=== PATIENT | female | born 1945 | race Caucasian/White ===

== ENCOUNTER 2020-07-03 14:13 | Observation (INO) | payer MEDICARE, OTHER, SELFPAY ==
[2020-07-03] VITALS (81 sets, daily range): BP systolic 121–184; BP diastolic 66–111; PULSE 54–162; RESP 10–56; TEMP 36.4–36.8; O2SAT 54–100; BMI 25.2
--- NOTE | 2020-07-03 14:25 | DI.RAD.S_ITS ---
PROCEDURE: XR CHEST 1V INDICATIONS: tachycardia TECHNIQUE: One view of the chest was acquired. COMPARISON: None. FINDINGS: Surgical changes and devices: None. Lungs and pleura: 20 mm diameter right lateral lung base nodule.. No pleural effusions or pneumothorax. Mediastinum: Mediastinal contours appear normal. Heart size is normal. Bones and chest wall: No suspicious bony lesions. Overlying soft tissues appear unremarkable. IMPRESSION: 1. No acute process. 2. Right lung base nodule; further assessment with chest CT with intravenous contrast is recommended. Dictated by: Juan F Adrian M.D. on 07/03/2020 at 14:48 Approved by: Juan F Adrian M.D. on 07/03/2020 at 14:49
--- NOTE | 2020-07-03 14:37 | PC.NURSE ---
patient seen in clinic on [facility] this morning. states she has had a few days of chest pressure that velt like vibrations. states she still has these feelings. denies SOB n/v.
[2020-07-03 14:41] LABS: Add Manual Diff / Slide Review NO; Basophils Absolute Auto 100 /uL (0-100); Basophils Percent Auto 0.9 % (0-2); Eosinophils Absolute Auto 100 /uL (0-450); Eosinophils Percent Auto 0.8 % (2-4); Hematocrit 44.8 % (36-46); Hemoglobin 14.9 g/dL (12.0-16.0); Lymphocytes Absolute Auto 1600 /uL (1100-4500); Lymphocytes Percent Auto 16.7 % (25-40); Mean Corpuscular HGB Conc 33.3 % (30-36); Mean Corpuscular Hemoglobin 32.5 PG (26-34); Mean Corpuscular Volume 97.7 fL (80-100); Monocytes Absolute Auto 800 /uL (0-900); Monocytes Percent Auto 7.8 % (3-14); Neutrophils Absolute Auto 7200 /uL (1500-7000); Neutrophils Percent Auto 73.8 % (50-75); Platelet Count 290 X10^3/uL (150-400); Red Blood Cell Count 4.59 X10^6/uL (4.0-5.2); Red Cell Distribution Width 13.4 % (11.6-14.8); White Blood Cell Count 9.8 X10^3/uL (4.5-11.0)
[2020-07-03 14:55] LABS: Alanine Aminotransferase 17 IU/L (<35); Albumin Globulin Ratio 1.5 (1.0-2.8); Alkaline Phosphatase 97 U/L (38-126); Aspartate Aminotransferase 27 IU/L (14-36); BUN Creatinine Ratio 19.6 (6-22); Bilirubin Total 0.7 mg/dL (0.2-1.3); Blood Urea Nitrogen 19 mg/dL (7-17); Calcium 10.1 mg/dL (8.4-10.2); Carbon Dioxide 25 mmol/L (22-32); Chloride 104 mmol/L (98-107); Creatine Kinase 68 U/L (30-135); Estimated Glomerular Filt Rate 56.3 mL/min (>60); Globulin 3.3 g/dL (1.7-4.1); Glucose 108 mg/dL (80-110); HEMOLYSIS 17 (0-50); Magnesium 2.2 mg/dL (1.6-2.3); Potassium 4.1 mmol/L (3.4-5.1); Sodium 138 mmol/L (137-145); Total Protein 8.3 g/dL (6.3-8.2)
--- NOTE | 2020-07-03 15:01 | ED.ARRPALP ---
HPI - Arrhythmia/Palpitations General Chief Complaint: Arrhythmia/Palpitations Stated Complaint: heart angina Time Seen by Provider: 07/03/20 15:01 Source: patient Mode of arrival: Ambulatory Limitations: no limitations History of Present Illness HPI narrative: 74-year-old woman from [place] with intermittent palpitations for the last 10 days fairly solidly rapid over the last 3 days. History of hypothyroidism lupus, Raynaud's disease and like, status post and I stent with no need for any additional medications. Over the last 10 days she has noticed episodes of her heart rate racing without associated dyspnea, diaphoresis or pain. Since Friday morning it has been fairly consistent and in the 160s. Again no pain, diaphoresis or dyspnea. No lower extremity edema and no other concerning signs or symptoms. She was assuming it would go away which is why it took her 3 days to present to the emergency room from [facility] Home Medications Medication Instructions Recorded Confirmed multivitamin [Multiple Vitamins] 1 tab PO DAILY #0 01/24/17 07/03/20 levothyroxine [Synthroid] 0.075 mg PO QAM #0 06/09/17 07/03/20 Allergies Allergy/AdvReac Type Severity Reaction Status Date / Time No Known Drug Allergies Allergy Verified 07/03/20 14:24 Review of Systems Review of Systems Narrative: She does note some intermittent right-sided jaw swelling around her TMJ joint, occasional hot flashes at night Pertinent positive and negative findings as per HPI Remainder of review of systems is otherwise unremarkable for Constitutional: Fevers, chills, weakness GI: Nausea, vomiting, diarrhea, change in bowel habits, black or bloody stools : Dysuria, hematuria, flank pain MS: Muscle weakness, numbness, joint swelling or warmth Skin: Rashes, nonhealing lesions Neuro: Syncope, dizziness, tingling Patient History Medical History Acquired hypothyroidism Atrial flutter with rapid ventricular response (Acute) Chronic obstructive pulmonary disease (01/24/17) Pulmonary nodule (Acute) Social History Smoking Status: Former smoker Smoking Status: Former smoker alcohol intake frequency: 0-2 drinks per day Substance Use Type: marijuana Exam Narrative Exam Narrative: General: Healthy appearing, in no acute distress. Able to give a complete and coherent history. Well-nourished well-developed HEENT: Moist mucous membranes, normal sclera with reactive pupils, Neck: No JVD, supple Respiratory: Lungs are clear to auscultation, no wheezing no rales no rhonchi. Full and symmetrical air movement Cardiac: Irregular rate slowed dramatically after initial diltiazem bolus, no murmurs no bruits Abdomen: Soft nontender good bowel tones, no flank pain Skin: Warm and dry, no rashes Neurologic: Grossly neurologically intact with no obvious asymmetries or abnormalities Extremities: No trauma, well perfused Psych: Cooperative, appropriate insight and affect Initial Vital Signs Initial Vital Signs: Vital Signs Temperature 97.9 F 07/03/20 14:22 Pulse Rate 162 H 07/03/20 14:22 Respiratory Rate 24 07/03/20 14:22 Blood Pressure 184/89 H 07/03/20 14:22 Pulse Oximetry 100 07/03/20 14:22 Course Orders Ordered: ED Orders 07/03/20 14:25 XR chest 1V Stat EKG-12 Lead Stat 07/03/20 14:30 Complete Blood Count AUTO DIFF Stat Comprehensive Metabolic Panel Stat Magnesium Stat Thyroid Stimulating Hormone Stat Troponin & CK Cardiac Panel Stat DILTIAZEM (Diltiazem 125 Mg/125 Ml-D5w) 125 mg in 125 mls @ 5 mls/hr IV TITRATE YADIRA; Protocol Last Admin: 07/03/20 15:39 Dose: 5 mg/hr, 5 mls/hr Documented by: DAVID Discontinued Medications Diltiazem HCl (Cardizem) 20 mg IV NOW ONE Stop: 07/03/20 15:04 Last Admin: 07/03/20 15:24 Dose: 20 mg Documented by: DAVID Vital Signs Vital signs: Vital Signs - 8 hr 07/03/20 14:22 07/03/20 14:28 07/03/20 14:29 Temperature 97.9 F Pulse Rate 162 H 69 54 L Respiratory Rate 24 Blood Pressure 184/89 H Pulse Oximetry 100 60 L 54 L 07/03/20 14:30 07/03/20 14:31 07/03/20 14:35 Temperature Pulse Rate 161 H Respiratory Rate Blood Pressure 156/110 H Pulse Oximetry 56 L 100 07/03/20 14:40 07/03/20 14:45 07/03/20 14:50 Temperature Pulse Rate 160 H 160 H 160 H Respiratory Rate Blood Pressure 147/105 H 149/103 H Pulse Oximetry 99 100 100 07/03/20 14:55 07/03/20 15:00 07/03/20 15:05 Temperature Pulse Rate 160 H 160 H 160 H Respiratory Rate Blood Pressure 136/101 H Pulse Oximetry 100 100 99 07/03/20 15:10 07/03/20 15:15 07/03/20 15:22 Temperature Pulse Rate 162 H 162 H 158 H Respiratory Rate Blood Pressure 142/99 H Pulse Oximetry 98 100 94 07/03/20 15:24 07/03/20 15:25 07/03/20 15:30 Temperature Pulse Rate 162 H 161 H 81 Respiratory Rate Blood Pressure 129/111 H 138/103 H 122/66 Pulse Oximetry 90 L 99 100 07/03/20 15:35 07/03/20 15:40 07/03/20 15:45 Temperature Pulse Rate 82 83 148 H Respiratory Rate Blood Pressure 133/84 138/88 139/82 Pulse Oximetry 99 100 100 07/03/20 15:50 07/03/20 15:55 07/03/20 16:00 Temperature Pulse Rate 82 82 83 Respiratory Rate Blood Pressure 136/83 140/86 126/86 Pulse Oximetry 100 100 99 07/03/20 16:05 Temperature Pulse Rate 83 Respiratory Rate Blood Pressure 124/83 Pulse Oximetry 99 MDM - Arrhythmia/Palpitations Medical Records Attestation: I reviewed the patient's medical records. Lab Data Attestation: I reviewed the patient's lab results. Result diagrams: 07/03/20 14:30 07/03/20 14:30 Labs: Lab Results 07/03/20 07/03/20 07/03/20 Range/Units 14:30 14:30 14:30 WBC 9.8 (4.5-11.0) X10^3/uL RBC 4.59 (4.0-5.2) X10^6/uL Hgb 14.9 (12.0-16.0) g/dL Hct 44.8 (36-46) % MCV 97.7 (80-100) fL MCH 32.5 (26-34) PG MCHC 33.3 (30-36) % RDW 13.4 (11.6-14.8) % Plt Count 290 (150-400) X10^3/uL Neut % (Auto) 73.8 (50-75) % Lymph % (Auto) 16.7 L (25-40) % [place] % (Auto) 7.8 (3-14) % Eos % (Auto) 0.8 L (2-4) % Baso % (Auto) 0.9 (0-2) % Neut # (Auto) 7200 H (3459-2909) /uL Lymph # (Auto) 1600 (1052-4973) /uL [place] # (Auto) 800 (0-900) /uL Eos # (Auto) 100 (0-450) /uL Baso # (Auto) 100 (0-100) /uL Sodium 138 (137-145) mmol/L Potassium 4.1 (3.4-5.1) mmol/L Chloride 104 (98-107) mmol/L Carbon Dioxide 25 (22-32) mmol/L BUN 19 H (7-17) mg/dL Creatinine 0.97 (0.52-1.04) mg/dL Estimated GFR 56.3 L (>60) mL/min BUN/Creatinine Ratio 19.6 (6-22) Glucose 108 (80-110) mg/dL Calcium 10.1 (8.4-10.2) mg/dL Magnesium 2.2 (1.6-2.3) mg/dL Total Bilirubin 0.7 (0.2-1.3) mg/dL AST 27 (14-36) IU/L ALT 17 (<35) IU/L Alkaline Phosphatase 97 (38-126) U/L Total Creatine Kinase 68 (30-135) U/L CK-MB (CK-2) TNP CK-MB (CK-2) Rel Index TNP Troponin I 0.014 (0.01-0.034) ng/mL Total Protein 8.3 H (6.3-8.2) g/dL Albumin 5.0 (3.5-5.0) g/dL Globulin 3.3 (1.7-4.1) g/dL Albumin/Globulin Ratio 1.5 (1.0-2.8) TSH 10.5 H (0.47-4.68) uIU/mL Urine Dip Bedside Urine Glucose Negative Bedside Urine Bilirubin - Negative Bedside Urine Ketone +/- 5 Urine Specific [place] 1.010 Bedside Urine Occult Blood - Negative Bedside Urine pH 6.0 Bedside Urine Protein - Negative Bedside Urine Urobilinogen - Negative Bedside Urine Nitrite - Negative Bedside Urine Leukocytes - Negative Esterase Imaging Data Chest x-ray: Radiologist's Impresson: IMPRESSION: 1. No acute process. 2. Right lung base nodule; further assessment with chest CT with intravenous contrast is recommended. Dictated by: Juan F Adrian M.D. on 07/03/2020 at 14:48 ECG Data Attestation: I personally reviewed and interpreted this ECG as follows: Interpretation: Atrial flutter with rapid ventricular response at 161 Left anterior and right bundle branch block ST T wave changes noted #2, after 20mg IV dilt bolus Atrial flutter with a rate of 80 Rightward axis Left bundle-branch block No obvious ischemia MDM Narrative Medical decision making narrative: 74-year-old woman with 10 days of intermittent palpitations in the last 72 hours has been consistently in a rapid rhythm. Presenting to the emergency room with atrial flutter one-to-one at a rate of 161. No significant complaints other than the flutter feeling in her chest. Initial labs are unremarkable including a normal troponin. Chest x-ray reveals a 20 mm right lateral lung base nodule that is a new diagnosis for her. She is given a 20 mg bolus of diltiazem which showed slows her ventricular rate to 80 and clearly reveals the flutter pattern underlying. As this is a new diagnosis and she lives on [place] she will need observation, a discussion of anticoagulation, discussion of outpatient follow-up and will likely benefit from echocardiogram. Will contact hospitalist service. She is currently stable at this time diltiazem drip is continuing but may well be able to be converted to oral medications in light of the dramatically slowed ventricular rate with a syncopal list. Dr Killian accepts admit Discharge Plan Departure Clinical Impression: Atrial flutter with rapid ventricular response, Pulmonary nodule Discharge Date/Time: 07/03/20 16:06 Admit Date/Time: 07/03/20 16:05 Admit Provider: Cheo Killian
[2020-07-03 15:05] LABS: Troponin I 0.014 ng/mL (0.01-0.034)
[2020-07-03 15:24] LABS: Thyroid Stimulating Hormone 10.5 uIU/mL (0.47-4.68)
[2020-07-03] MEDS: dilTIAZem 5 MG/ML SDV 20 MG IV (15:24)
[2020-07-03] MEDS: DILTIAZEM 125 MG/125 ML PIGGYBACK IV (15:39)
--- NOTE | 2020-07-03 15:40 | PC.NURSE ---
patient converted to what appeared normal sinus in bedside monitor. EKG now shows a flutter with rate controlled to 83. bp 138/88 Patient swabbed for covid in preparation for admission to ICU
[2020-07-03 16:53] LABS: COVID19 -Nasal RAPID Negative (Negative)
--- NOTE | 2020-07-03 18:17 | P.HP_ITS ---
History of Present Illness History of Present Illness Date Patient Seen: 07/03/20 Time Patient Seen: 18:18 Chief complaint: heart angina Narrative: Shayy Valdivia is a 74-year-old female with past medical history of hypothyroidism, glaucoma status post stent, and reported lupus and Raynaud's disease who presented with intermittent palpitations over previous 5 days. She feels episodes where her heart is racing, but denies any associated shortness of breath, dizziness, chest pain although she does feel intermittent epigastric pressure that is resolved when her palpitations resolved. Over the past 3 days her heart rate has been fairly consistently in the 150s to 160s, so she went to the emergency room on [address] today for further evaluation. She denies any lower extremity edema, shortness of breath, dyspnea on exertion. 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 In the emergency room her initial heart rate was in the 160s, EKG showed atrial flutter. She showed improvement with IV diltiazem was started on a diltiazem infusion in the emergency room. During my interview she actually converted to normal sinus rhythm with rate of 76. Otherwise vital signs were unremarkable. Initial laboratory findings were further unremarkable including a normal potassium and normal magnesium. Her GFR is slightly low at 56.3 with a creatinine of 0.97. Troponin was negative at 0.014. TSH was 10.5, free T4 will be added on. COVID-19 testing was negative. Patient was admitted under observation status for new diagnosis of atrial flutter with rapid ventricular response. Patient History Medical History Acquired hypothyroidism Atrial flutter with rapid ventricular response (Acute) Chronic obstructive pulmonary disease (01/24/17) Pulmonary nodule (Acute) Family & Social History Social History: household members spouse Prior Living Arrangements House Safety & Behavioral: Feels Safe in Current Yes Environment Been Physically Hurt or No Threatened By a Person Suicidal Ideation Description None Suicide Plan Description No Plan Tobacco & Substance use: Smoking Status Former smoker alcohol intake former alcohol intake frequency 0-2 drinks per day Substance Use Type marijuana Meds Home Medications and Allergies Home Medications Medication Instructions Recorded Confirmed Type multivitamin [Multiple Vitamins] 1 tab PO DAILY #0 01/24/17 07/03/20 History levothyroxine [Synthroid] 0.075 mg PO QAM #0 06/09/17 07/03/20 History Allergies Allergy/AdvReac Type Severity Reaction Status Date / Time No Known Drug Allergies Allergy Verified 07/03/20 14:24 Review of Systems Review of Systems Narrative: All other systems reviewed with the patient and are negative unless otherwise stated. Exam Vital Signs (past 8 hours): - 07/03/20 14:22 07/03/20 14:28 07/03/20 14:29 Temperature 97.9 F Pulse Rate 162 H 69 54 L Respiratory Rate 24 Blood Pressure 184/89 H Pulse Oximetry 100 60 L 54 L 07/03/20 14:30 07/03/20 14:31 07/03/20 14:35 Temperature Pulse Rate 161 H Respiratory Rate Blood Pressure 156/110 H Pulse Oximetry 56 L 100 07/03/20 14:40 07/03/20 14:45 07/03/20 14:50 Temperature Pulse Rate 160 H 160 H 160 H Respiratory Rate Blood Pressure 147/105 H 149/103 H Pulse Oximetry 99 100 100 07/03/20 14:55 07/03/20 15:00 07/03/20 15:05 Temperature Pulse Rate 160 H 160 H 160 H Respiratory Rate Blood Pressure 136/101 H Pulse Oximetry 100 100 99 07/03/20 15:10 07/03/20 15:15 07/03/20 15:22 Temperature Pulse Rate 162 H 162 H 158 H Respiratory Rate Blood Pressure 142/99 H Pulse Oximetry 98 100 94 07/03/20 15:24 07/03/20 15:25 07/03/20 15:30 Temperature Pulse Rate 162 H 161 H 81 Respiratory Rate Blood Pressure 129/111 H 138/103 H 122/66 Pulse Oximetry 90 L 99 100 07/03/20 15:35 07/03/20 15:40 07/03/20 15:45 Temperature Pulse Rate 82 83 148 H Respiratory Rate Blood Pressure 133/84 138/88 139/82 Pulse Oximetry 99 100 100 07/03/20 15:50 07/03/20 15:55 07/03/20 16:00 Temperature Pulse Rate 82 82 83 Respiratory Rate Blood Pressure 136/83 140/86 126/86 Pulse Oximetry 100 100 99 07/03/20 16:05 07/03/20 16:10 07/03/20 16:15 Temperature Pulse Rate 83 83 83 Respiratory Rate Blood Pressure 124/83 126/88 134/93 H Pulse Oximetry 99 99 100 07/03/20 16:20 07/03/20 16:25 07/03/20 16:26 Temperature Pulse Rate 83 84 82 Respiratory Rate Blood Pressure 127/83 135/86 Pulse Oximetry 99 99 99 07/03/20 16:30 07/03/20 16:35 07/03/20 16:40 Temperature Pulse Rate 83 83 83 Respiratory Rate Blood Pressure 134/84 136/86 142/87 H Pulse Oximetry 99 100 99 07/03/20 16:52 07/03/20 16:54 07/03/20 16:55 Temperature Pulse Rate 78 83 83 Respiratory Rate Blood Pressure 136/96 H Pulse Oximetry 83 L 99 99 07/03/20 17:00 07/03/20 17:05 07/03/20 17:10 Temperature Pulse Rate 132 H 86 84 Respiratory Rate 29 H 17 25 H Blood Pressure Pulse Oximetry 96 100 100 07/03/20 17:15 07/03/20 17:20 07/03/20 17:25 Temperature 98.2 F Pulse Rate 83 84 83 Respiratory Rate 38 H 31 H 10 L Blood Pressure 136/96 H Pulse Oximetry 99 99 100 07/03/20 17:30 07/03/20 17:35 07/03/20 17:40 Temperature Pulse Rate 73 97 H 83 Respiratory Rate 27 H 56 H 25 H Blood Pressure Pulse Oximetry 100 97 98 07/03/20 17:45 07/03/20 17:50 07/03/20 17:55 Temperature Pulse Rate 75 72 90 Respiratory Rate 19 26 H 37 H Blood Pressure Pulse Oximetry 98 98 99 07/03/20 18:00 07/03/20 18:05 Temperature Pulse Rate 73 70 Respiratory Rate 27 H 21 Blood Pressure 127/79 127/79 Pulse Oximetry 98 97 Oxygen Delivery Method Room Air Narrative Exam Narrative: GENERAL APPEARANCE: Well developed, well nourished, in no acute distress. SKIN: Inspection of the skin reveals no rashes, ulcerations or petechiae. HEENT: Normocephalic atraumatic, extraocular muscles are intact, oropharynx is clear and mucous membranes are moist, neck is supple without adenopathy NECK: Supple and symmetric. There was no thyroid enlargement, and no tenderness, or masses were felt. CHEST: Normal AP diameter and normal contour without any kyphoscoliosis. LUNGS: Auscultation of the lungs revealed no wheezes, rhonchi, or rales. CARDIOVASCULAR: There was a regular rate and rhythm without any murmurs, gallops, rubs. Peripheral pulses were 2+ and symmetric. ABDOMEN: Soft and nontender with normal bowel sounds. No ascites was noted. MUSCULOSKELETAL: There was no tenderness or effusions noted. Muscle strength and tone were normal. EXTREMITIES: No cyanosis, clubbing or edema. NEUROLOGIC: Alert and oriented x 3. Normal affect. Gait was normal. Strength is +5/5 in the Upper Extremities and Lower Extremities Bilaterally. Sensation to touch was normal. Objective Labs Result Diagrams: 07/03/20 14:30 07/03/20 14:30 Labs: Laboratory Results - last 24 hr 07/03/20 07/03/20 07/03/20 14:30 14:30 14:30 WBC 9.8 RBC 4.59 Hgb 14.9 Hct 44.8 MCV 97.7 MCH 32.5 MCHC 33.3 RDW 13.4 Plt Count 290 Neut % (Auto) 73.8 Lymph % (Auto) 16.7 L [place] % (Auto) 7.8 Eos % (Auto) 0.8 L Baso % (Auto) 0.9 Neut # (Auto) 7200 H Lymph # (Auto) 1600 [place] # (Auto) 800 Eos # (Auto) 100 Baso # (Auto) 100 Sodium 138 Potassium 4.1 Chloride 104 Carbon Dioxide 25 BUN 19 H Creatinine 0.97 Estimated GFR 56.3 L BUN/Creatinine Ratio 19.6 Glucose 108 Calcium 10.1 Magnesium 2.2 Total Bilirubin 0.7 AST 27 ALT 17 Alkaline Phosphatase 97 Total Creatine Kinase 68 CK-MB (CK-2) TNP CK-MB (CK-2) Rel Index TNP Troponin I 0.014 Total Protein 8.3 H Albumin 5.0 Globulin 3.3 Albumin/Globulin Ratio 1.5 TSH 10.5 H COVID-19 PCR 07/03/20 15:35 WBC RBC Hgb Hct MCV MCH MCHC RDW Plt Count Neut % (Auto) Lymph % (Auto) [place] % (Auto) Eos % (Auto) Baso % (Auto) Neut # (Auto) Lymph # (Auto) [place] # (Auto) Eos # (Auto) Baso # (Auto) Sodium Potassium Chloride Carbon Dioxide BUN Creatinine Estimated GFR BUN/Creatinine Ratio Glucose Calcium Magnesium Total Bilirubin AST ALT Alkaline Phosphatase Total Creatine Kinase CK-MB (CK-2) CK-MB (CK-2) Rel Index Troponin I Total Protein Albumin Globulin Albumin/Globulin Ratio TSH COVID-19 PCR Negative Assessment & Plan Assessment & Plan narrative: Shayy Vadlivia is a 74-year-old female with past medical history of hypothyroidism, glaucoma status post stent, and reported lupus and Raynaud's disease who presented with intermittent palpitations over previous 5 days. She is admitted to the ICU under observation status for atrial fibrillation/flutter with rapid ventricular response. She converted to normal sinus rhythm after infusion of IV diltiazem during my interview with her. 1. Paroxysmal Atrial fibrillation/flutter with rapid ventricular response, acute, present on admission, resolved -patient presented with a heart rate of 160 in atrial flutter. She was started on IV diltiazem with improvement in her rate. She converted to normal sinus rhythm upon arrival to the floor. -will start metoprolol 25 mg b.i.d. -continue to wean from diltiazem infusion if needed. -repeat EKG after conversion to sinus rhythm shows a rate of 68, with a right bundle branch block and inverted T-waves in V1 through V3. There are no prior EKGs available for comparison. -chads Vasc score of 2, discussed anticoagulation will start apixaban this evening. -will obtain echocardiogram -initial troponin negative at 0.014, will repeat 2. Hypothyroidism, present on admission -TSH of 10.5 on admission, free T4 is currently pending -patient currently takes 75 mcg at home which may need to be increased depending on free T4 level 3. History of reported lupus and Raynaud's phenomenon -reports recent increase in frequency of her malar rash, although this is not currently present. -patient states she treats herself with natural therapies which work for her, she does not take any prescribed medications Code: Full, as discussed with the patient. Surrogate decision maker she lists as her . Dispo: Admitted under observation status to the ICU for possible continued need of diltiazem infusion. Anticipate likely discharge tomorrow if she remains in sinus rhythm. DVT: Will start apixaban Scores CHADS-VASc Congestive heart failure: no Hypertension: no Age 75 years or older: no Diabetes mellitus: no Stroke, TIA, or TE: no Vascular disease: no Age 65 to 74 years: yes Sex category (female): Female CHADS-VASc Score: 2
[2020-07-03 18:44] LABS: Free T4, Direct Thyroxine 1.37 ng/dL (0.78-2.19)
[2020-07-03] MEDS: METOPROLOL ER 25 MG TABLET PO ×2 (19:00→21:07)
[2020-07-03] MEDS: APIXABAN 5 MG TABLET PO (21:08)
[2020-07-03 21:40] LABS: Troponin I 0.017 ng/mL (0.01-0.034)
[2020-07-04 04:53] VITALS: BP 136/74; PULSE 63; RESP 18; TEMP 36.1; O2SAT 98
[2020-07-04 05:01] LABS: Add Manual Diff / Slide Review NO; Basophils Absolute Auto 0 /uL (0-100); Basophils Percent Auto 0.8 % (0-2); Eosinophils Absolute Auto 200 /uL (0-450); Eosinophils Percent Auto 3.9 % (2-4); Hematocrit 38.6 % (36-46); Hemoglobin 12.9 g/dL (12.0-16.0); Lymphocytes Absolute Auto 1600 /uL (1100-4500); Lymphocytes Percent Auto 32.5 % (25-40); Mean Corpuscular HGB Conc 33.4 % (30-36); Mean Corpuscular Hemoglobin 32.6 PG (26-34); Mean Corpuscular Volume 97.5 fL (80-100); Monocytes Absolute Auto 500 /uL (0-900); Monocytes Percent Auto 10.1 % (3-14); Neutrophils Absolute Auto 2600 /uL (1500-7000); Neutrophils Percent Auto 52.7 % (50-75); Platelet Count 226 X10^3/uL (150-400); Red Blood Cell Count 3.96 X10^6/uL (4.0-5.2); Red Cell Distribution Width 13.2 % (11.6-14.8); White Blood Cell Count 4.9 X10^3/uL (4.5-11.0)
[2020-07-04 05:02] LABS: Hemoglobin A1C% w Est Avg Glu 4.8 % (4.0-6.0)
[2020-07-04 05:07] LABS: Alanine Aminotransferase 13 IU/L (<35); Albumin Globulin Ratio 1.6 (1.0-2.8); Alkaline Phosphatase 63 U/L (38-126); Aspartate Aminotransferase 22 IU/L (14-36); BUN Creatinine Ratio 17.8 (6-22); Bilirubin Total 0.9 mg/dL (0.2-1.3); Bilirubin Unconjugated 0.8 mg/dL (0.0-1.1); Blood Urea Nitrogen 16 mg/dL (7-17); Calcium 9.3 mg/dL (8.4-10.2); Carbon Dioxide 27 mmol/L (22-32); Chloride 105 mmol/L (98-107); Cholesterol 137 mg/dL (140-199); Estimated Glomerular Filt Rate > 60.0 mL/min (>60); Globulin 2.5 g/dL (1.7-4.1); Glucose 93 mg/dL (80-110); HDL Cholesterol 68 mg/dL (40-60); HEMOLYSIS < 15 (0-50); LDL Cholesterol Calculated 56 mg/dL (<100); Magnesium 2.1 mg/dL (1.6-2.3); Potassium 4.6 mmol/L (3.4-5.1); Sodium 136 mmol/L (137-145); Total Protein 6.5 g/dL (6.3-8.2); Triglycerides 63 mg/dL (35-150)
--- NOTE | 2020-07-04 06:22 | PC.NURSE ---
Pt resting comfortably this shift, up independ. in room. Tele remains NSR, and no c/o chest pain/pressure/ SOB. VSS.
[2020-07-04 08:20] VITALS: BP 139/84; PULSE 61; RESP 16; TEMP 37.1; O2SAT 98
[2020-07-04 08:23] VITALS: PULSE 58; RESP 16; O2SAT 99
[2020-07-04] MEDS: METOPROLOL ER 25 MG TABLET PO (08:31)
[2020-07-04] MEDS: MULTIVITAMIN 1 TABLET 1 TAB PO (08:32)
[2020-07-04] MEDS: APIXABAN 5 MG TABLET PO (08:32)
[2020-07-04] MEDS: LEVOTHYROXINE 75 MCG TABLET PO (08:35)
--- NOTE | 2020-07-04 11:19 | DI.ECHO.S_ITS ---
Echocardiogram Report + + :Name: SAIRA VALENTINO Study Date: 07/04/2020 Height: 63 in : :[facility] Weight: 144 lb : : Gender: Female BSA: 1.7 m2 : :: 1945 Age: 74 yrs BP: 122/70 mmHg: :Reason For Study: AFIB WITH RVR : :Ordering Physician: : :MELVINAISTMARTELL Performed By: Adelia Li : :Referring: AYAZ ENAMORADO : + + Interpretation Summary The patient was in sinus bradycardia with heart rates between 52-60 bpm during the exam. Left ventricular wall thickness is mildly increased. Left ventricular systolic function is normal. The right ventricle is normal in size and function. The left atrium is moderately dilated. No hemodynamically significant valvular abnormalities. Procedure: A two-dimensional transthoracic echocardiogram with color flow and Doppler was performed. The study quality was technically adequate. There is no prior echocardiogram noted for this patient. The patient was in sinus bradycardia with heart rates between 52-60 bpm during the exam. Left Ventricle: The left ventricle is normal in size. Left ventricular wall thickness is mildly increased. The ejection fraction is estimated to be 55- 60%. Left ventricular systolic function is normal. Left ventricular global longitudinal strain average is normal at -22.1% (normal is more negative than -20%). There are no focal wall motion abnormalities. Diastolic function could not be accurately assessed due to contradictory data. Right Ventricle: The right ventricle is normal in size and function. Atria: The left atrium is moderately dilated. The right atrium is mildly dilated. There is no Doppler evidence for an interatrial shunt. Mitral Valve: The mitral valve is normal in structure and function. There is mild mitral regurgitation. Aortic Valve: The aortic valve is trileaflet. The aortic valve opens well. There is no aortic valve stenosis. There is trace aortic regurgitation. Tricuspid Valve: The tricuspid valve is normal in structure and function. There is mild tricuspid regurgitation. The right ventricular systolic pressure is estimated to be at least 32 mmHg based on an estimated right atrial pressure of 8 mm Hg. Pulmonic Valve: The pulmonic valve leaflets are thin and pliable; valve motion is normal. There is mild pulmonic regurgitation. Great Vessels: The aortic root is normal size. The ascending aorta is mildly enlarged. The IVC is dilated (diameter is greater than 2.1 cm) yet it collapses greater than 50% with a sniff. This suggests a right atrial pressure of 8 mm Hg. Pericardium/ Pleura There is no pericardial effusion. There is no pleural effusion. MMode/2D Measurements & Calculations LVIDd: 4.9 cm LVOT diam: 2.1 cm LVIDs: 3.2 cm Ao root diam: 3.3 cm FS: 33.6 % asc Aorta Diam: 3.5 cm EPSS: 1.2 cm Ao Arch Diam (Prox Trans): 3.3 cm IVSd: 1.1 cm LVPWd: 0.93 cm LV cheng. diameter/BSA (cm/m^2): 2.9 LV sys. diameter/BSA (cm/m^2): 1.9 LA A2 area: 26.3 cm2 RA long axis: 5.4 cm LA A4 area: 19.8 cm2 RA area: 19.5 cm2 LA length (vol): 5.6 cm RA vol: 59.9 ml LA vol: 78.5 ml RA : 35.6 ml/m2 LA vol index: 46.7 ml/m2 IVC diam: 2.2 cm RVD1 (basal): 3.2 cm TAPSE: 2.4 cm Doppler Measurements & Calculations Ao V2 max: 118.5 cm/sec LVOT Max Cameron: 78.8 cm/sec Ao V2 mean: 75.6 cm/sec LV V1 max P.5 mmHg Ao max P.6 mmHg LV V1 VTI: 18.4 cm Ao mean P.7 mmHg TRIPP(I,D): 2.2 cm2 Ao V2 VTI: 27.6 cm TRIPP(V,D): 2.2 cm2 sev ratio: 0.66 TRIPP indexed to BSA (cm^2/m^2): 1.3 MV E max cameron: 81.7 cm/sec TR max cameron: 244.0 cm/sec MV A max cameron: 49.9 cm/sec TR max P.8 mmHg MV E/A: 1.6 PA pr(Accel): 13.9 mmHg Med Peak E' Cameron: 9.1 cm/sec E/E' med: 9.0 Lat Peak E' Cameron: 10.1 cm/sec E/E' lat: 8.1 E/e' average: 8.5 MV dec time: 0.17 sec SV(LVOT): 61.1 ml Electronically signed by: Naveed Godfrey M.D. on Reading Physician:07/04/2020 03:46 PM
[2020-07-04 12:00] VITALS: BP 125/72; PULSE 53; RESP 16; TEMP 36.9; O2SAT 99
--- NOTE | 2020-07-04 13:09 | CM.DANOTE ---
DCP/Assessment: Reviewed chart. Patient is a 74yr old female admitted to [facility] with chest pain/AFIB. PCP is Dr. Benson. Primary payor is 1)Medicare 2)[employer]. Met with patient during AM rounds. Patient alert and oriented. Patient reports that she feels great patient hopes to d/c home today after work up completed. Dr. Killian confirms. Patient resides on [address] and reports that she is I with ADL's. Spouse will provide transport home. Patient will need priority boarding pass. RN aware. P: Anticipate home today if work up completed and negative. SHIVAM Botello Discharge Planning/Care Management CM Discharge Assessment Start: 07/04/20 13:07 Freq: Status: Active Protocol: Document 07/04/20 13:07 WIL (Rec: 07/04/20 13:09 WIL [id number]) Discharge Planning Assessment Assigned [employer] SHIVAM Botello Contact Information Prince Valdivia (spouse) ph# Advance Directives? No History Provided By Patient,Medical Record Prior Living Arrangements House Household Members spouse Type of transporation used prior to Relies on Others admit Independent with ADL's Yes Is patient alert and oriented? Yes Barriers to Discharge No Comment Patient will need priority boarding pass to return to [place]. Discharge Plan Home Transportation Arrangement Spouse to provide transport. Referrals Initiated None needed Whiteboard Updated in Patient Room with Yes name and ext. # of [employer] Review Status In Process Next Review Type Continued Stay Review
--- NOTE | 2020-07-04 13:26 | P.DS_ITS ---
History of Present Illness History of Present Illness Date Patient Seen: 07/04/20 Time Patient Seen: 13:26 Chief complaint: heart angina Narrative: Shayy Valdivia is a 74-year-old female with past medical history of hypothyroidism, glaucoma status post stent, and reported lupus and Raynaud's disease who presented with intermittent palpitations over previous 5 days. She feels episodes where her heart is racing, but denies any associated shortness of breath, dizziness, chest pain although she does feel intermittent epigastric pressure that is resolved when her palpitations resolved. Over the past 3 days her heart rate has been fairly consistently in the 150s to 160s, so she went to the emergency room on [address] today for further evaluation. She denies any lower extremity edema, shortness of breath, dyspnea on exertion. 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 In the emergency room her initial heart rate was in the 160s, EKG showed atrial flutter. She showed improvement with IV diltiazem was started on a diltiazem infusion in the emergency room. During my interview she actually converted to normal sinus rhythm with rate of 76. Otherwise vital signs were unremarkable. Initial laboratory findings were further unremarkable including a normal potassium and normal magnesium. Her GFR is slightly low at 56.3 with a creatinine of 0.97. Troponin was negative at 0.014. TSH was 10.5, free T4 will be added on. COVID-19 testing was negative. Patient was admitted under observation status for new diagnosis of atrial flutter with rapid ventricular response. Discharge Providers Provider Date of admission: 07/03/20 16:05 Discharge Date: 07/04/20 Primary care physician: Felipe Benson MD Discharge provider: Cheo Killian DO Summary Hospital Course Discharge Diagnosis: 1. Paroxysmal Atrial fibrillation/flutter with rapid ventricular response, acute, present on admission, resolved 2. Hypothyroidism, present on admission 3. History of reported lupus and Raynaud's phenomenon Hospital Course: Shayy Valdivia is a 74-year-old female with past medical history of hypothyroidism, glaucoma status post stent, and reported lupus and Raynaud's disease who presented with intermittent palpitations over previous 5 days. She was admitted to the ICU under observation status for atrial fibrillation/flutter with rapid ventricular response. She converted to normal sinus rhythm after infusion of IV diltiazem during my initial interview with her and remained in normal sinus rhythm with initiation of oral metoprolol. Echocardiogram revealed mild left atrial dilatation, but a normal ejection fraction and no wall motion abnormalities. She was discharged on 25 mg of metoprolol succinate twice daily, and apixaban for anticoagulation. She will follow-up with her primary care provider on [address] for possible further referral for cardiology evaluation. Her TSH was elevated on admission to 10.5, but had a normal free T4. Further titration of levothyroxine should be done by primary care provider. Exam Vital Signs (past 8 hours): - 07/04/20 08:20 07/04/20 08:23 07/04/20 12:00 Temperature 98.8 F 98.5 F Pulse Rate 61 58 L 53 L Respiratory Rate 16 16 16 Blood Pressure 139/84 125/72 Pulse Oximetry 98 99 99 Oxygen Delivery Method Room Air Oxygen Flow Rate 0 Narrative Exam Narrative: GENERAL APPEARANCE: Well developed, well nourished, in no acute distress. SKIN: Inspection of the skin reveals no rashes, ulcerations or petechiae. HEENT: Normocephalic atraumatic, extraocular muscles are intact, oropharynx is clear and mucous membranes are moist, neck is supple without adenopathy NECK: Supple and symmetric. There was no thyroid enlargement, and no tenderness, or masses were felt. CHEST: Normal AP diameter and normal contour without any kyphoscoliosis. LUNGS: Auscultation of the lungs revealed no wheezes, rhonchi, or rales. CARDIOVASCULAR: There was a regular rate and rhythm without any murmurs, gallops, rubs. Peripheral pulses were 2+ and symmetric. ABDOMEN: Soft and nontender with normal bowel sounds. No ascites was noted. MUSCULOSKELETAL: There was no tenderness or effusions noted. Muscle strength and tone were normal. EXTREMITIES: No cyanosis, clubbing or edema. NEUROLOGIC: Alert and oriented x 3. Normal affect. Gait was normal. Strength is +5/5 in the Upper Extremities and Lower Extremities Bilaterally. Sensation to touch was normal. Objective Labs Result Diagrams: 07/04/20 04:40 07/04/20 04:40 Labs: Laboratory Results - last 24 hr 07/03/20 07/03/20 07/03/20 14:30 14:30 14:30 WBC 9.8 RBC 4.59 Hgb 14.9 Hct 44.8 MCV 97.7 MCH 32.5 MCHC 33.3 RDW 13.4 Plt Count 290 Neut % (Auto) 73.8 Lymph % (Auto) 16.7 L [place] % (Auto) 7.8 Eos % (Auto) 0.8 L Baso % (Auto) 0.9 Neut # (Auto) 7200 H Lymph # (Auto) 1600 [place] # (Auto) 800 Eos # (Auto) 100 Baso # (Auto) 100 Sodium 138 Potassium 4.1 Chloride 104 Carbon Dioxide 25 BUN 19 H Creatinine 0.97 Estimated GFR 56.3 L BUN/Creatinine Ratio 19.6 Glucose 108 Hemoglobin A1c Calcium 10.1 Magnesium 2.2 Total Bilirubin 0.7 Conjugated Bilirubin Unconjugated Bilirubin AST 27 ALT 17 Alkaline Phosphatase 97 Total Creatine Kinase 68 CK-MB (CK-2) TNP CK-MB (CK-2) Rel Index TNP Troponin I 0.014 Total Protein 8.3 H Albumin 5.0 Globulin 3.3 Albumin/Globulin Ratio 1.5 Triglycerides Cholesterol LDL Cholesterol, Calc HDL Cholesterol TSH 10.5 H Free T4 Nasal Screen MRSA (PCR) COVID-19 PCR 07/03/20 07/03/20 07/03/20 14:30 15:35 18:27 WBC RBC Hgb Hct MCV MCH MCHC RDW Plt Count Neut % (Auto) Lymph % (Auto) [place] % (Auto) Eos % (Auto) Baso % (Auto) Neut # (Auto) Lymph # (Auto) [place] # (Auto) Eos # (Auto) Baso # (Auto) Sodium Potassium Chloride Carbon Dioxide BUN Creatinine Estimated GFR BUN/Creatinine Ratio Glucose Hemoglobin A1c Calcium Magnesium Total Bilirubin Conjugated Bilirubin Unconjugated Bilirubin AST ALT Alkaline Phosphatase Total Creatine Kinase CK-MB (CK-2) CK-MB (CK-2) Rel Index Troponin I Total Protein Albumin Globulin Albumin/Globulin Ratio Triglycerides Cholesterol LDL Cholesterol, Calc HDL Cholesterol TSH Free T4 1.37 Nasal Screen MRSA (PCR) Negative for mrsa COVID-19 PCR Negative 07/03/20 07/04/20 07/04/20 20:51 04:40 04:40 WBC 4.9 RBC 3.96 L Hgb 12.9 Hct 38.6 MCV 97.5 MCH 32.6 MCHC 33.4 RDW 13.2 Plt Count 226 Neut % (Auto) 52.7 D Lymph % (Auto) 32.5 [place] % (Auto) 10.1 Eos % (Auto) 3.9 Baso % (Auto) 0.8 Neut # (Auto) 2600 Lymph # (Auto) 1600 [place] # (Auto) 500 Eos # (Auto) 200 Baso # (Auto) 0 Sodium 136 L Potassium 4.6 Chloride 105 Carbon Dioxide 27 BUN 16 Creatinine 0.90 Estimated GFR > 60.0 BUN/Creatinine Ratio 17.8 Glucose 93 Hemoglobin A1c Calcium 9.3 Magnesium 2.1 Total Bilirubin 0.9 Conjugated Bilirubin 0.0 Unconjugated Bilirubin 0.8 AST 22 ALT 13 Alkaline Phosphatase 63 Total Creatine Kinase CK-MB (CK-2) CK-MB (CK-2) Rel Index Troponin I 0.017 Total Protein 6.5 Albumin 4.0 Globulin 2.5 Albumin/Globulin Ratio 1.6 Triglycerides 63 Cholesterol 137 L LDL Cholesterol, Calc 56 HDL Cholesterol 68 H TSH Free T4 Nasal Screen MRSA (PCR) COVID-19 PCR 07/04/20 04:40 WBC RBC Hgb Hct MCV MCH MCHC RDW Plt Count Neut % (Auto) Lymph % (Auto) [place] % (Auto) Eos % (Auto) Baso % (Auto) Neut # (Auto) Lymph # (Auto) [place] # (Auto) Eos # (Auto) Baso # (Auto) Sodium Potassium Chloride Carbon Dioxide BUN Creatinine Estimated GFR BUN/Creatinine Ratio Glucose Hemoglobin A1c 4.8 Calcium Magnesium Total Bilirubin Conjugated Bilirubin Unconjugated Bilirubin AST ALT Alkaline Phosphatase Total Creatine Kinase CK-MB (CK-2) CK-MB (CK-2) Rel Index Troponin I Total Protein Albumin Globulin Albumin/Globulin Ratio Triglycerides Cholesterol LDL Cholesterol, Calc HDL Cholesterol TSH Free T4 Nasal Screen MRSA (PCR) COVID-19 PCR Discharge Plan Discharge Plan Patient Disposition: Home Discharge comment: You were admitted to the hospital with a rapid heart rate and an arrhythmia called atrial fibrillation and atrial flutter. Your heart returned to regular rhythm very quickly and you were started on a new medication to help you prevent going into this abnormal rhythm. Your also started on a blood thinner. You should follow-up with her primary care provider in the next 1-2 weeks and I do recommend that you see a pricing consultant after discharge. Discharge orders & Medications Prescriptions: New apixaban 5 mg tablet 5 mg PO BID 30 Days Qty: 60 RF: 0 metoprolol succinate 25 mg Tablet Extended Release 24 Hr 25 mg PO BID 30 Days Qty: 60 RF: 0 Continued multivitamin [Multiple Vitamins] 1 EACH tablet 1 tab PO DAILY Qty: 0 RF: 0 levothyroxine [Synthroid] 75 MCG tablet 0.075 mg PO QAM Qty: 0 RF: 0 Follow up/Referrals: Felipe Benson MD [Primary Care Provider] - Discharge Health Status Health Concerns: Atrial fibrillation / flutter Diet/Activity/Treatments Diet: Diet as Tolerated Activity: As tolerated Visit Report/Discharge Packet Instructions: DI for Atrial Fibrillation, Metoprolol, Apixaban Visit Report Forms: Patient Portal/API, Stroke Signs & Symptoms Discharge Data Primary Care Provider: Felipe Benson Attending Provider: Cheo Killian Admit Date/Time: 07/03/20 16:05 Discharges patient from system. Discharge Date/Time: 07/04/20 14:00
== END 2020-07-04 14:00 | disposition home or self-care (01) ==
LOC: ED 15:01 → AC 16:06 → ICU 17:21
PROVIDERS: Admitting Provider Internal Medicine; Emergency Provider Emergency Medicine; PCP Family Medicine; Referring Provider Emergency Medicine; Visit Provider Internal Medicine
DX: I48.0 Paroxysmal atrial fibrillation (principal); I48.92 Unspecified atrial flutter; E03.9 Hypothyroidism, unspecified; Z11.59 Encounter for screening for other viral diseases
CPT/HCPCS: 36415; 71045; 80048; 80053; 80061; 80076; 81003; 82550; 83036; 83735; 84439; 84443; 84484; 85025; 87635; 87797; 93005; 93306; 94762; 96365; 96366; 96376; 99284; G0378

== ENCOUNTER 2023-10-15 16:13 | Emergency (ER) | payer MEDICARE, OTHER, SELFPAY ==
[2020-07-03 17:02] VITALS: BMI 25.2
[2023-10-15 17:01] VITALS: BP 185/88; PULSE 79; RESP 18; TEMP 37.1; O2SAT 98; BMI 30.1
[2023-10-15 19:12] VITALS: BP 179/88; PULSE 75
--- NOTE | 2023-10-15 20:10 | ED.EXTPRO ---
HPI - Extremity Problem General Chief complaint: Extremity Problem,Nontraumatic Stated complaint: possible blockage rt upper arm Time Seen by Provider: 10/15/23 16:32 Source: patient Mode of arrival: Wheelchair History of Present Illness HPI Narrative: Patient is a 78-year-old female. Recently underwent a right total shoulder replacement secondary to a fracture. This was done at an outside facility. After the procedure she was sent to a local rehab facility. She has been doing physical therapy although she did miss a couple days of the therapy. She has extensive bruising on her right shoulder even up to the right side of her neck and of the right side of her chest. She started to get swelling in her right arm and right wrist so she was sent over for an outpatient ultrasound. They were unable to complete the ultrasound due to the limitations of her ability to move her arm so she was sent to the emergency department to obtain a CT scan per request of the radiologist. Related Data Home Medications Medication Instructions Recorded Confirmed multivitamin (Multiple Vitamins 1 tab PO DAILY ##0 01/24/17 07/03/20 tablet) levothyroxine 75 mcg tablet 0.075 mg PO QAM ##0 06/09/17 07/03/20 (Synthroid) Allergies Allergy/AdvReac Type Severity Reaction Status Date / Time No Known Drug Allergies Allergy Verified 07/03/20 14:24 Review of Systems Constitutional Constitutional: Reports system reviewed and no additional complaints, except as documented Musculoskeletal Musculoskeletal: Reports system reviewed and no additional complaints, except as documented Integumentary/Breasts Skin/Breast: Reports system reviewed and no additional complaints, except as documented Neurologic Neurologic: Reports system reviewed and no additional complaints, except as documented Patient History Medical History Pulmonary nodule Atrial flutter with rapid ventricular response Chronic obstructive pulmonary disease (01/24/17) Acquired hypothyroidism Social History household members: spouse Smoking Status: Former smoker alcohol intake: former Smoking Status: Former smoker alcohol intake frequency: holidays/special occasions only Substance Use Type: does not use Exam Initial Vital Signs Initial Vital Signs: Vital Signs Temperature 98.8 F 10/15/23 17:01 Pulse Rate 79 10/15/23 17:01 Respiratory Rate 18 10/15/23 17:01 Blood Pressure 185/88 H 12/13/23 17:01 Pulse Oximetry 98 10/15/23 17:01 Oxygen Delivery Method Room Air 10/15/23 17:01 Cardio Pulses: radial pulses present on the right Skin Other: Extensive bruising to the right side of the chest and right upper extremity extending to the right neck. Extrem Other: Swelling to the right upper extremity Course Vital Signs Vital signs: Vital Signs - 8 hr 10/15/23 19:12 10/15/23 20:21 Pulse Rate 75 81 Respiratory Rate 16 Blood Pressure 179/88 H 146/69 H Pulse Oximetry 99 Oxygen Delivery Method Room Air Room Air MDM - Extremity (Nontraumatic) Imaging Data Right upper extremity CT: Radiologist's Impression: PROCEDURE: CT UE RT W CON INDICATIONS: DVT, post shoulder surgery same side TECHNIQUE: After the administration of intravenous contrast, 3 mm axial sections acquired of the right upper extremity , with coronal and sagittal reformats. COMPARISON: None. FINDINGS: Metal artifact from right shoulder arthroplasty limits evaluation of surrounding tissue. Evaluation of the deep veins is limited due to suboptimal contrast timing. No definite thrombus is seen within the deep veins of the right upper extremity. Status post reversed total right shoulder arthroplasty with prosthetic elements in anatomic position. Hardware elements appear intact. There is marked subcutaneous soft tissue swelling and edema in the distal aspect of the arm from the elbow to the wrist. Arterial vasculature appears intact. IMPRESSION: No definite CT evidence of deep vein thrombosis in the right upper extremity, however evaluation is limited due to suboptimal contrast timing. MDM Narrative Medical decision making narrative: Patient is neurovascularly intact. Does have extensive swelling and ecchymosis consistent with her stated surgical history. No DVT noted on the CT scan. Will discharge patient home to continue postoperative rehab. Discharge Plan Departure Patient Disposition: Home Clinical Impression: Postoperative ecchymosis Activity Restrictions/Additional Instructions: The workup here in the emergency department did not show any signs of a blood clot in your right arm. Recommend that you follow all of the postoperative instructions given to you by the surgeon and keep all of your scheduled medical appointments. Continue to take all of your medications as directed. Prescriptions: No Action multivitamin [Multiple Vitamins] 1 EACH tablet 1 tab PO DAILY Qty: 0 levothyroxine [Synthroid] 75 MCG tablet 0.075 mg PO QAM Qty: 0 Referrals: Felipe Benson MD [Primary Care Provider] - Stand Alone Forms: Patient Portal/API
[2023-10-15 20:21] VITALS: BP 146/69; PULSE 81; RESP 16; O2SAT 99
== END 2023-10-15 20:21 | disposition home or self-care (01) ==
PROVIDERS: Emergency Provider Emergency Medicine; PCP Family Medicine
DX: M96.89 Other intraoperative and postprocedural complications and disorders of the musculoskeletal system (principal); Y83.9 Surgical procedure, unspecified as the cause of abnormal reaction of the patient, or of later complication, without mention of misadventure at the time of the procedure; M79.601 Pain in right arm; Z87.891 Personal history of nicotine dependence
CPT/HCPCS: 73201; 80053; 85025; 85610; 85730; 99281; Q9967

== ENCOUNTER → 2023-10-15 | Outpatient (CLI) | payer MEDICARE, OTHER, SELFPAY ==
[2020-07-03 17:02] VITALS: BMI 25.2
--- NOTE | 2023-10-15 16:08 | DI.CT.S_ITS ---
PROCEDURE: CT UE RT W CON INDICATIONS: DVT, post shoulder surgery same side TECHNIQUE: After the administration of intravenous contrast, 3 mm axial sections acquired of the right upper extremity , with coronal and sagittal reformats. COMPARISON: None. FINDINGS: Metal artifact from right shoulder arthroplasty limits evaluation of surrounding tissue. Evaluation of the deep veins is limited due to suboptimal contrast timing. No definite thrombus is seen within the deep veins of the right upper extremity. Status post reversed total right shoulder arthroplasty with prosthetic elements in anatomic position. Hardware elements appear intact. There is marked subcutaneous soft tissue swelling and edema in the distal aspect of the arm from the elbow to the wrist. Arterial vasculature appears intact. IMPRESSION: No definite CT evidence of deep vein thrombosis in the right upper extremity, however evaluation is limited due to suboptimal contrast timing. Dictated by: Molly King M.D. on 10/15/2023 at 19:34 Approved by: Molly King M.D. on 10/15/2023 at 19:47
--- NOTE | 2023-10-15 16:33 | ED.GENADULT ---
HPI - General Adult History of Present Illness HPI narrative: 78-year-old woman with recent shoulder surgery done at [facility]. Increased swelling to that arm with concerns for upper extremity DVT. She is currently in a rehab facility and an order for outpatient ultrasound was done. Unfortunately, due to pain and shoulder immobility after surgery ultrasound is not able to be appropriately completed and there is concern for a large clot. Care is reviewed with radiologist in real-time with recommendation to have her check into the emergency department so that we can facilitate a CT scan of the upper extremity. Related Data Home Medications Medication Instructions Recorded Confirmed multivitamin (Multiple Vitamins 1 tab PO DAILY ##0 01/24/17 07/03/20 tablet) levothyroxine 75 mcg tablet 0.075 mg PO QAM ##0 06/09/17 07/03/20 (Synthroid) Allergies Allergy/AdvReac Type Severity Reaction Status Date / Time No Known Drug Allergies Allergy Verified 07/03/20 14:24 Patient History Medical History Pulmonary nodule Atrial flutter with rapid ventricular response Chronic obstructive pulmonary disease (01/24/17) Acquired hypothyroidism Social History household members: spouse Smoking Status: Former smoker alcohol intake: former Smoking Status: Former smoker alcohol intake frequency: 0-2 drinks per day Substance Use Type: marijuana Course Orders Ordered: ED Orders 10/15/23 16:08 CT UE RT w con Stat Medical Decision Making MDM Narrative Medical decision making narrative: CC: Complicating co-morbidities: Data collected from: patient Social determinants of health that may influence the patients condition: Medical records reviewed: All of her surgery was done in [place] and we have no access to records this time. Differential considered: Exam documented above, pertinent findings include: Lab Test results independently reviewed as above. Pertinent findings: Independently reviewed EKG: Imaging studies independently reviewed: Consultations: Treatments: Re-evaluations: Discussion: Discharge Plan Discharge Med Rec/Prescriptions Prescriptions: No Action multivitamin [Multiple Vitamins] 1 EACH tablet 1 tab PO DAILY Qty: 0 levothyroxine [Synthroid] 75 MCG tablet 0.075 mg PO QAM Qty: 0 Visit Report/Discharge Packet Referrals: Felipe Benson MD [Primary Care Provider] - Discharge Data Primary Care Provider: Felipe Benson Attending Provider: Ana Luisa Peralta
[2023-10-15 19:36] LABS: INR 1.3 (0.9-1.3); Prothrombin Time 15.5 SECONDS (9.4-12.5)
[2023-10-15 19:38] LABS: PTT Partial Thromboplastin Tim 30 SECONDS (25.1-36.5)
[2023-10-15 19:39] LABS: Alanine Aminotransferase 17 IU/L (<35); Albumin 3.5 g/dL (3.5-5.0); Albumin Globulin Ratio 1.1 (1.0-2.8); Alkaline Phosphatase 88 U/L (38-126); Aspartate Aminotransferase 33 IU/L (14-36); BUN Creatinine Ratio 21.2 (6-22); Bilirubin Total 0.9 mg/dL (0.2-1.3); Blood Urea Nitrogen 14 mg/dL (7-17); Calcium 9.1 mg/dL (8.4-10.2); Carbon Dioxide 25 mmol/L (22-32); Chloride 105 mmol/L (98-107); Estimated Glomerular Filt Rate > 60 mL/min (>60); Globulin 3.2 g/dL (1.7-4.1); Glucose 105 mg/dL (80-110); HEMOLYSIS < 15 (0-50); Potassium 3.5 mmol/L (3.4-5.1); Sodium 136 mmol/L (137-145); Total Protein 6.7 g/dL (6.3-8.2)
[2023-10-15 19:44] LABS: Add Manual Diff / Slide Review NO; Basophils Absolute Auto 100 /uL (0-100); Eosinophils Absolute Auto 100 /uL (0-450); Eosinophils Percent Auto 1.1 % (2-4); Hemoglobin 8.5 g/dL (12.0-16.0); Lymphocytes Absolute Auto 1400 /uL (1100-4500); Lymphocytes Percent Auto 20.6 % (25-40); Mean Corpuscular HGB Conc 33.8 % (30-36); Mean Corpuscular Hemoglobin 33.7 PG (26-34); Mean Corpuscular Volume 99.6 fL (80-100); Monocytes Absolute Auto 1000 /uL (0-900); Monocytes Percent Auto 14.2 % (3-14); Neutrophils Absolute Auto 4300 /uL (1500-7000); Neutrophils Percent Auto 63.1 % (50-75); Platelet Count 602 X10^3/uL (150-400); Red Blood Cell Count 2.51 X10^6/uL (4.0-5.2); Red Cell Distribution Width 24.3 % (11.6-14.8); White Blood Cell Count 6.8 X10^3/uL (4.5-11.0)
[2023-10-15 20:28] LABS: Anisocytosis 3+
[2023-10-15 20:30] LABS: Macrocytosis 1+
== END ==
LOC: US 15:25
PROVIDERS: Emergency Medicine; PCP Family Medicine; Referring Provider Registered Nurse; Visit Provider Registered Nurse
DX: M79.601 Pain in right arm (principal)
CPT/HCPCS: 73201; 80053; 85025; 85610; 85730; Q9967